=== PATIENT | male | born 1950 | race Two or more races ===

== ENCOUNTER 2019-01-23 07:10 | Inpatient (IN) | payer BC, OTHER ==
[2019-01-23 07:31] LABS: VENOUS PC02 63.1 mmHg (38-52)
[2019-01-23 07:36] LABS: VENOUS PO2 < 49 mmHg (28-48)
[2019-01-23 07:37] LABS: VENOUS PH 6.93 (7.31-7.41)
[2019-01-23] MEDS ORDERED: NOREPINEPHRINE BITARTRATE 4 MG/4 ML ML IV ONE (07:41)
[2019-01-23 08:02] LABS: BASO % 0.7 % (0-2.0); EOS % 0.4 % (0-4.5); HEMATOCRIT 34.2 % (35.4-49); HEMOGLOBIN 11.3 GM/dL (11.7-16.9); LYMPH % 14.3 % (8-40); MCH 32.7 pg (25.7-33.7); MCHC 33.2 g/dl (32.0-35.9); MEAN CELL VOLUME 98.4 fl (80-96); MEAN PLT VOLUME 7.9 fl (7.5-11.1); MONO % 5.4 % (3.8-10.2); NEUT % 79.2 % (42.8-82.8); PLATELET COUNT 366 K/MM3 (134-434); RBC 3.47 M/mm3 (4.00-5.60); RDW 13.5 % (11.9-15.9); WHITE BLOOD COUNT 20.2 K/mm3 (4.0-10.0)
[2019-01-23 08:05] VITALS: BMI 22.6
[2019-01-23 08:07] LABS: ALBUMIN 1.8 g/dl (3.4-5.0); BILIRUBIN,TOTAL 1.6 mg/dL (0.2-1); CREATININE 1.7 mg/dL (0.55-1.3); POTASSIUM 4.7 mmol/L (3.5-5.1); TOT PROT 5.2 g/dl (6.4-8.2)
[2019-01-23 08:23] LABS: INR 1.24 (0.83-1.09); PROTHROMBIN TIME (PATIENT) 14.7 SEC (9.7-13.0)
[2019-01-23 08:26] LABS: ACTIVATED PTT 34.8 SECONDS (25.2-36.5)
--- NOTE | 2019-01-23 08:36 | PDOC ---
Attending Attestation - Resident Resident Name: CliveannabellaevelynMaximiliano - ED Attending Attestation I have performed the following: I have examined & evaluated the patient, The case was reviewed & discussed with the resident, I agree w/resident's findings & plan, Exceptions are as noted - HPI HPI: 01/23/19 08:19 68 M with h/o newly diagnosed ?lung CA, brought in by EMS for cardiac arrest. Per family, pt had a cough yesterday but was in otherwise good health. This morning, daughter states she heard a thud and found the pt unresponsive on the ground. EMS arrived and found pt in PEA arrest. CPR was initiated, and pt was given epi x 2 with ROSC. Pt was intubated in the field. In ED, ETT placement was confirmed by auscultation, end tidal CO2. Pt initially hypotensive 70s/30s, tachycardic to 130, hypoxic to 90% on vent Pt fluid resuscitated with 2L NS, with improvement in BP and HR. Pt suddenly decompensated, with drop in BP to 50/30. IO placed. Pt given epi and started on levophed. BP stabilized to 150/80. While on vent, pt's O2 sat dopped to 30% with good waveform. Pt taken off vent, bagged with improvement to 80% CXR revealed diffuse infiltrates. Vent settings adjusted per ARDS protocol, increased PEEP, tidal volume lowered. - Physicial Exam PE: 01/23/19 08:36 GENERAL: + unresponsive, intubated HEAD: + occipital hematoma EYES: PERRLA, sclera anicteric, conjunctiva clear ENT: Auricles normal inspection, nares patent, Moist mucosa NECK: no stepoffs, supple, no lymphadenopathy, JVD, or masses LUNGS: + coarse breathsounds throughout on ventilator HEART: + tachycardic, normal S1 and S2, no murmurs, rubs or gallops ABDOMEN: Soft, nondistended, No masses EXTREMITIES: No clubbing or cyanosis. No cords, erythema, or tenderness NEUROLOGICAL: + paralyzed SKIN: Warm, Dry, normal turgor, no rashes or lesions noted. - Critical Care Time Total Critical Care Time: 180 Critical Care Statement: The care of this patient involved high complexity decision making to prevent further life threatening deterioration of the patient 's condition and/or to evaluate & treat vital organ system(s) failure or risk of failure. - Medical Decision Making 01/23/19 08:45 68 M with PEA arrest at home, now with ROSC. Possible PE. EKG does not show STEMI. Head hematoma on exam, will r/o ICH. Pt now with diffuse infiltrates on CXR, suspicious for ARDS. - Maintain vent settings per ARDS protocol - CT head/c-spine - CTA chest to r/o PE - CT abd/pelvis - Central line placement for pressors - Admit ICU 01/23/19 10:20 CT negative for PE Triple lumen CVC placed therapeutic hypothermia initiated
--- NOTE | 2019-01-23 09:12 | PDOC ---
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 Pt family report recent DC from [facility], pt placed on 6L NC 26/11 and family states pt complained of SOB yesterday at home asking to increase O2 to 8L. Daughter reports seeing pt this am around 6, took a 10 min shower and when getting out of the bathroom, heard a thump and found the pt unresponsive on the ground. EMS called, pt found to be in PEA, given 2 epi and intubated, ROSC achieved with good O2 saturation and cap in the 40s In the ED pt placed on monitor, ABC intact, ET tube confirmed by auscultation and end tidal CO2. BP 70s/30s, tachy and hypoxic 01/23/19 14:38 01/23/19 08:19 68 M with h/o newly diagnosed ?lung CA, brought in by EMS for cardiac arrest. Per family, pt had a cough yesterday but was in otherwise good health. This morning, daughter states she heard a thud and found the pt unresponsive on the ground. EMS arrived and found pt in PEA arrest. CPR was initiated, and pt was given epi x 2 with ROSC. Pt was intubated in the field. In ED, ETT placement was confirmed by auscultation, end tidal CO2. Pt initially hypotensive 70s/30s, tachycardic to 130, hypoxic to 90% on vent Pt fluid resuscitated with 2L NS, with improvement in BP and HR. Pt suddenly decompensated, with drop in BP to 50/30. IO placed. Pt given epi and started on levophed. BP stabilized to 150/80. While on vent, pt's O2 sat dopped to 30% with good waveworm. Pt taken off vent, bagged with improvement to 80% CXR revealed diffuse infiltrates. Vent settings adjusted per ARDS protocol, increased PEEP, tidal volume lowered. - Physicial Exam PE: 01/23/19 08:36 GENERAL: + unresponsive, intubated HEAD: + occipital hematoma EYES: PERRLA, sclera anicteric, conjunctiva clear ENT: Auricles normal inspection, nares patent, Moist mucosa NECK: no stepoffs, supple, no lymphadenopathy, JVD, or masses LUNGS: + coarse breathsounds throughout on ventilator HEART: + tachycardic, normal S1 and S2, no murmurs, rubs or gallops ABDOMEN: Soft, nondistended, No masses EXTREMITIES: No clubbing or cyanosis. No cords, erythema, or tenderness NEUROLOGICAL: + paralyzed SKIN: Warm, Dry, normal turgor, no rashes or lesions noted. - Critical Care Time Total Critical Care Time: 120 Critical Care Statement: The care of this patient involved high complexity decision making to prevent further life threatening deterioration of the patient 's condition and/or to evaluate & treat vital organ system(s) failure or risk of failure. - Medical Decision Making 01/23/19 08:45 68 M with PEA arrest at home, now with ROSC. Possible PE. EKG does not show STEMI. Head hematoma on exam, will r/o ICH. Pt now with diffuse infiltrates on CXR, suspicious for ARDS. - Maintain vent settings per ARDS protocol - CT head/c-spine - CTA chest to r/o PE - CT abd/pelvis - Central line placement for pressors - Admit ICU 01/23/19 10:20 CT negative for PE therapeutic hypothermia initiated Past History - Past Medical History Allergies/Adverse Reactions: Allergies Allergy/AdvReac Type Severity Reaction Status Date / Time No Allergy Information Allergy Verified 01/23/19 07:58 Available - Suicide/Smoking/Psychosocial Hx Smoking History: Unknown if ever smoked *Physical Exam - Vital Signs Last Vital Signs Temp Pulse Resp BP Pulse Ox 99.6 F 122 H 18 166/70 78 L 01/23/19 07:10 01/23/19 09:10 01/23/19 09:10 01/23/19 09:10 01/23/19 09:10 ED Treatment Course - LABORATORY CBC & Chemistry Diagram: 01/23/19 12:00 01/23/19 12:00 - ADDITIONAL ORDERS Additional order review: Laboratory Results 01/23/19 01/23/19 01/23/19 07:56 07:20 07:20 PT with INR INR PTT (Actin FS) VBG pH 6.93 L* POC VBG pCO2 63.1 H POC VBG pO2 < 49 H VBG HCO3 12.6 L VBG O2 Sat (Wilda) 25.9 L VBG Base Excess -20.3 L Sodium Potassium Chloride Carbon Dioxide Anion Gap BUN Creatinine Est GFR (CKD-EPI)AfAm Est GFR (CKD-EPI)NonAf POC Glucometer Random Glucose Lactic Acid 12.9 H* Calcium Total Bilirubin AST ALT Alkaline Phosphatase Troponin I Total Protein Albumin Blood Type O POSITIVE Antibody Screen Negative 01/23/19 01/23/19 01/23/19 07:20 07:20 07:20 PT with INR 14.70 H INR 1.24 H PTT (Actin FS) 34.8 VBG pH POC VBG pCO2 POC VBG pO2 VBG HCO3 VBG O2 Sat (Wilda) VBG Base Excess Sodium 128 L Potassium 4.7 Chloride 94 L Carbon Dioxide 13 L Anion Gap 21 H BUN 27.0 H Creatinine 1.7 H Est GFR (CKD-EPI)AfAm 46.65 Est GFR (CKD-EPI)NonAf 40.25 POC Glucometer Random Glucose 219 H Lactic Acid Calcium 8.0 L Total Bilirubin 1.6 H AST 164 H ALT 117 H Alkaline Phosphatase 131 H Troponin I 0.02 Total Protein 5.2 L Albumin 1.8 L Blood Type Antibody Screen 01/23/19 07:17 PT with INR INR PTT (Actin FS) VBG pH POC VBG pCO2 POC VBG pO2 VBG HCO3 VBG O2 Sat (Wilda) VBG Base Excess Sodium Potassium Chloride Carbon Dioxide Anion Gap BUN Creatinine Est GFR (CKD-EPI)AfAm Est GFR (CKD-EPI)NonAf POC Glucometer 209 Random Glucose Lactic Acid Calcium Total Bilirubin AST ALT Alkaline Phosphatase Troponin I Total Protein Albumin Blood Type Antibody Screen 01/23/19 01/23/19 07:20 07:17 RBC 3.47 L MCV 98.4 H MCHC 33.2 RDW 13.5 MPV 7.9 Neutrophils % 79.2 Lymphocytes % 14.3 Monocytes % 5.4 Eosinophils % 0.4 Basophils % 0.7 POC Glucometer 209 *DC/Admit/Observation/Transfer - Referrals - Patient Instructions - Post Discharge Activity
[2019-01-23] MEDS ORDERED: SODIUM BICARBONATE 8.4% 50 MEQ/50 ML VIAL IV ONE (09:13)
[2019-01-23] MEDS ORDERED: SODIUM CHLORIDE IV STA (09:13)
[2019-01-23] MEDS ORDERED: EPINEPHrine 1:1,000 1 MG/1 ML - 30ML VIAL (INJECTION) IV ONE (09:14)
[2019-01-23] MEDS ORDERED: NOREPINEPHRINE BITARTRATE 8,000 MCG in DEXTROSE 5%-WATER - 492 ML IV SCH (09:15)
[2019-01-23 09:27] LABS: URINE APPEARANCE CLOUDY; URINE BILIRUBIN NEGATIVE (NEGATIVE); URINE COLOR YELLOW; URINE GLUCOSE (UA) NEGATIVE (NEGATIVE); URINE KETONE NEGATIVE (NEGATIVE)
[2019-01-23 09:28] LABS: URINE LEUK ESTERASE NEGATIVE (NEGATIVE); URINE NITRITE NEGATIVE (NEGATIVE); URINE PROTEIN 2+ (NEGATIVE)
[2019-01-23 09:32] LABS: EPI CELLS 3.2 /HPF (0-5/HPF); HYALINE CASTS 278.9 /lpf (0-8); URINE BACTERIA 52.8 /hpf (NEGATIVE); URINE RBC 23.3 /hpf (0-4); URINE WBC 100.4 /hpf (0-5)
[2019-01-23 09:33] LABS: YEAST MANY (NEGATIVE)
[2019-01-23] MEDS ORDERED: PROPOFOL 1,000,000 MCG/100 ML VIAL ONE ×2 (09:39→16:00)
[2019-01-23] MEDS ORDERED: PROPOFOL 1,000,000 MCG/100 ML VIAL IVPB SCH (09:45)
--- NOTE | 2019-01-23 10:46 | HP ---
CHIEF COMPLAINT: Cardiac Arrest PCP: [facility] HISTORY OF PRESENT ILLNESS: 68 y/o M with PMHx of newly diagnosed Lung Ca (B/L Adenocarcinoma, Diagnosed a few weeks ago at [facility]) presents after Cardiac Arrest. Patient was intubated and sedated during my interview, thus the HPI was provided by daughter Emerita and Maddi at bedside. Patient was in his usual state of health until yesterday at which point he had some worsening SOB; He was recently discharged from [facility] with home O2 and was using 6L but it was increased to 8L with minimal relief. At 0600, Daughter checked on patient who was sitting upright and able to converse. Approximately at 0615, daughter heard a loud thud and quickly approached patients room where she found him on the ground unconcious prompting her to alert EMS. As per EMR and ED documentation, patient had a down time of approx. 10 minutes, was found to be in PEA, Intubated in the field and ROSC was achieved after 2 rounds of Epinepherine. In the ED, patient was found to be Hypoxic, Hypotensive and tachycardic for which he recieved 2L NS however he again decompensated. Thus , an IO was placed and patient was started on levophed. Family denies any recent fevers, chills, chest pain, nausea, vomiting, diarrhea , constipation. Additionally he was recently rx'e 5mg Hydromorphone started yesterday evening. Famly mentions that patient has been experiencing some hemoptysis. 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 NECK: No JVD LUNGS: Mechanical vent sounds HEART: Tachycardic, S1 S2 ABDOMEN: Soft, nontender, Distended, Hypoactive bowel sounds EXTREMITIES: No peripheral edema. NEUROLOGICAL: Sedated SKIN: Warm, dry Laboratory Last Values WBC 20.2 K/mm3 (4.0-10.0) H 01/23/19 07:20 RBC 3.47 M/mm3 (4.00-5.60) L 01/23/19 07:20 Hgb 11.3 GM/dL (11.7-16.9) L 01/23/19 07:20 Hct 34.2 % (35.4-49) L 01/23/19 07:20 MCV 98.4 fl (80-96) H 01/23/19 07:20 MCH 32.7 pg (25.7-33.7) 01/23/19 07:20 MCHC 33.2 g/dl (32.0-35.9) 01/23/19 07:20 RDW 13.5 % (11.9-15.9) 01/23/19 07:20 Plt Count 366 K/MM3 (134-434) 01/23/19 07:20 MPV 7.9 fl (7.5-11.1) 01/23/19 07:20 Absolute Neuts (auto) 16.0 K/mm3 (1.5-8.0) H 01/23/19 07:20 Neutrophils % 79.2 % (42.8-82.8) 01/23/19 07:20 Lymphocytes % 14.3 % (8-40) 01/23/19 07:20 Monocytes % 5.4 % (3.8-10.2) 01/23/19 07:20 Eosinophils % 0.4 % (0-4.5) 01/23/19 07:20 Basophils % 0.7 % (0-2.0) 01/23/19 07:20 Nucleated RBC % 0 % (0-0) 01/23/19 07:20 PT with INR 14.70 SEC (9.7-13.0) H 01/23/19 07:20 INR 1.24 (0.83-1.09) H 01/23/19 07:20 PTT (Actin FS) 34.8 SECONDS (25.2-36.5) 01/23/19 07:20 VBG pH 6.93 (7.31-7.41) L* 01/23/19 07:20 POC VBG pCO2 63.1 mmHg (38-52) H 01/23/19 07:20 POC VBG pO2 < 49 mmHg (28-48) H 01/23/19 07:20 VBG HCO3 12.6 mmol/L (23-29) L 01/23/19 07:20 VBG O2 Sat (Wilda) 25.9 % (70-80) L 01/23/19 07:20 VBG Base Excess -20.3 meq/l (-2-2) L 01/23/19 07:20 Sodium 128 mmol/L (136-145) L 01/23/19 07:20 Potassium 4.7 mmol/L (3.5-5.1) 01/23/19 07:20 Chloride 94 mmol/L (98-107) L 01/23/19 07:20 Carbon Dioxide 13 mmol/L (21-32) L 01/23/19 07:20 Anion Gap 21 MMOL/L (8-16) H 01/23/19 07:20 BUN 27.0 mg/dL (7-18) H 01/23/19 07:20 Creatinine 1.7 mg/dL (0.55-1.3) H 01/23/19 07:20 Est GFR (CKD-EPI)AfAm 46.65 01/23/19 07:20 Est GFR (CKD-EPI)NonAf 40.25 01/23/19 07:20 POC Glucometer 209 UNITS (80-120) 01/23/19 07:17 Random Glucose 219 mg/dL (74-106) H 01/23/19 07:20 Lactic Acid 12.9 mmol/L (0.4-2.0) H* 01/23/19 07:20 Calcium 8.0 mg/dL (8.5-10.1) L 01/23/19 07:20 Total Bilirubin 1.6 mg/dL (0.2-1) H 01/23/19 07:20 AST 164 U/L (15-37) H 01/23/19 07:20 ALT 117 U/L (13-61) H 01/23/19 07:20 Alkaline Phosphatase 131 U/L (45-117) H 01/23/19 07:20 Troponin I 0.02 ng/ml (0.00-0.05) 01/23/19 07:20 Total Protein 5.2 g/dl (6.4-8.2) L 01/23/19 07:20 Albumin 1.8 g/dl (3.4-5.0) L 01/23/19 07:20 Urine Color Yellow 01/23/19 07:50 Urine Appearance Cloudy 01/23/19 07:50 Urine pH 6.0 (5.0-8.0) 01/23/19 07:50 Ur Specific Dahlgren 1.022 (1.010-1.035) 01/23/19 07:50 Urine Protein 2+ (NEGATIVE) H 01/23/19 07:50 Urine Glucose (UA) Negative (NEGATIVE) 01/23/19 07:50 Urine Ketones Negative (NEGATIVE) 01/23/19 07:50 Urine Blood 3+ (NEGATIVE) H 01/23/19 07:50 Urine Nitrite Negative (NEGATIVE) 01/23/19 07:50 Urine Bilirubin Negative (NEGATIVE) 01/23/19 07:50 Urine Urobilinogen 1.0 mg/dL (0.2-1.0) 01/23/19 07:50 Ur Leukocyte Esterase Negative (NEGATIVE) 01/23/19 07:50 Urine WBC (Auto) 100.4 /hpf (0-5) 01/23/19 07:50 Urine RBC (Auto) 23.3 /hpf (0-4) 01/23/19 07:50 Urine Casts (Auto) 278.9 /lpf (0-8) 01/23/19 07:50 U Pathogenic Cast Auto None seen /lpf (NEGATIVE) 01/23/19 07:50 U Epithel Cells (Auto) 3.2 /HPF (0-5/HPF) 01/23/19 07:50 Urine Bacteria (Auto) 52.8 /hpf (NEGATIVE) 01/23/19 07:50 Urine Yeast (Auto) Many (NEGATIVE) 01/23/19 07:50 Blood Type O POSITIVE 01/23/19 07:56 Antibody Screen Negative 01/23/19 07:56 Active Medications Chlorhexidine Gluconate (Hibiclens For Decolonization -) 1 applic TP HS RAHEEL Norepinephrine Bitartrate 8, (000 mcg/ Dextrose) 500 mls @ 18.75 mls/hr IV TITR RAHEEL; Protocol Last Titration: 01/23/19 10:59 Dose: 4 mcg/min, 15 mls/hr Sodium Chloride (Normal Saline -) 4,000 mls @ 1,000 mls/hr IV ASDIR STA Stop: 01/23/19 13:12 Last Admin: 01/23/19 07:15 Dose: 1,000 mls/hr Propofol (Diprivan -) 1,000,000 mcg in 100 mls @ 1.905 mls/hr IVPB TITR RAHEEL; Protocol Last Titration: 01/23/19 10:55 Dose: 30 mcg/kg/min, 11.431 mls/hr Piperacillin Sod/Tazobactam (Sod 3.375 gm/ Dextrose) 50 mls @ 100 mls/hr IVPB Q8H-IV RAHEEL; Protocol Lactated Ringer's (Lactated Ringers Solution) 1,000 ml in 1,000 mls @ 150 mls/ hr IV ASDIR RAHEEL Piperacillin Sod/Tazobactam (Sod 3.375 gm/ Dextrose) 50 mls @ 100 mls/hr IVPB ONCE ONE; Protocol Stop: 01/23/19 12:14 Mupirocin (Bactroban Ointment (For Decolonization) -) 1 applic NS BID RAHEEL Stop: 01/28/19 11:59 Vancomycin HCl (Vancomycin (Pre-Docked)) 1,000 mg IVPB DAILY RAHEEL; Protocol Vancomycin HCl (Vancomycin (Pre-Docked)) 1,000 mg IVPB ONCE ONE; Protocol Stop: 01/23/19 11:46 IMAGING: -CXR: There are no prior studies for comparison. There appears to be bilateral diffuse airspace changes compatible with right upper lobe and left lung consolidation and an element of infiltrate at the right base. There is a prominent mediastinum. The bones and soft tissues are intact his abdominal distention. Correlation recommended. There are no prior studies for comparison. CT may be of help. Please note an endotracheal tube is present and the tip is at the level of the clavicular heads. No other lines or tubes are visualized. -Head CT Without contrast: Minimal volume loss without CT evidence of acute intracranial pathology. Correlate clinically to determine further evaluation and follow-up. There is mild soft tissue swelling of the scalp over left side of the forehead. -C-Spine CT Without contrast: The alignment is satisfactory. No gross fracture or subluxation is seen. C5-C6 mild degenerative disc disease. An endotracheal tube is present and hence prevertebral soft tissue could not be evaluated. Focal nonspecific sclerotic density and T2 vertebral body measuring 6 mm. -Chest/Abdomen/Pelvis CTA: There is no gross evidence of a pulmonary embolus in the main pulmonary artery and its proximal branches, bilaterally. Normal size and enhancement of the thoracic and abdominal aorta without evidence of aneurysmal dilatation or dissection. Moderate pericardial effusion measuring 2 cm in width. There is diffuse bilateral airspace disease suggestive of lung edema that may be related to the vertex kinking history of cardiac arrest. Cannot rule out infection. Correlate clinically. Moderate dilatation of the small and bowel loops measuring up to 4 cm with multiple air-fluid levels and a normal-sized terminal ileum. Differential diagnosis includes severe ileus. Cannot rule out distal small bowel obstruction. Correlate clinically. No free air or free fluid in the abdomen and pelvis. Diverticulosis coli in the sigmoid colon without evidence of acute diverticulitis. Greene catheter within a decompressed urinary bladder. Small fat-containing right and left inguinal hernia. Healing fracture in posterior arch of the left seventh rib. Otherwise, no gross acute rib fracture is identified. ASSESSMENT/PLAN: 68 y/o M with PMHx of newly diagnosed Lung Ca (B/L Adenocarcinoma, Diagnosed a few weeks ago at [facility]) presents after Cardiac Arrest. #S/P Cardiac Arrest -Likely multifactorial with elements of Sepsis, Hypoxia -EKG reveals Sinus Tachycardia, RBBB VR 114, QTc 496 -Continue Target temperature management protocol -Stat A-Line requested -Trend Trops, Stat ABG; Will Require frequent Lab draws given TTM protocol -Received 2 amps Bicarb and currently Hyperventilating, will consider Bicarb drip if Acidosis does not improve -Check ECHO -Intubated on Vent -Cardio (Dr. Duff) Consulted -Palliative care #Severe Sepsis -Tachycardia + Leukocytosis with RUL, left lung consolidation and Right base infiltrate on CXR and ?Severe Ileus VS SBO on CT A/P -Continue IV Hydration; Given 4L NS Bolus in ED, Continue with LR @ 150 -Continue broad spectrum ABx, Vanco 1g Daily, Piperacillin/Tazobactam 3.35g Q8H -Continue Pressor support to maintain MAP > 65 -ID (Dr. Pandey) Consulted -Trend Lactate Q2H -Follow Cx's #Acute hypoxic respiratory failure -s/p intubation via EMS -ARDS apperance on CXR -Supplemental O2 to maintain SpO2 >90 -Further Vent management as per ICU #MINDY -Likely due to Hypoperfusion in the setting of Cardiac arrest, Sepsis -Continue IV Hydration -Avoid nephrotoxic agents -Monitor Urine Output, Cr #Ischemic hepatitis -Likely due to Hypoperfusion in the setting of Cardiac arrest -Trend LFTs #Prolonged QTc -Serial EKGs -Avoid QT Prolonging Agents #FEN -IV Hydration via LR -Replete Lytes PRN -NPO #PPx -DVT: SCDs Dispo: Admit to ICU, Poor Prognosis Code Status: DNR Visit type - Emergency Visit Emergency Visit: Yes ED Registration Date: 01/23/19 Care time: The patient presented to the Emergency Department on the above date and was hospitalized for further evaluation of their emergent condition. - New Patient This patient is new to me today: Yes Date on this admission: 01/23/19 - Critical Care Critical Care patient: Yes Total Critical Care Time (in minutes): 36 Critical Care Statement: The care of this patient involved high complexity decision making to prevent further life threatening deterioration of the patient 's condition and/or to evaluate & treat vital organ system(s) failure or risk of failure. ATTENDING PHYSICIAN STATEMENT I saw and evaluated the patient. I reviewed the resident's note and discussed the case with the resident. I agree with the resident's findings and plan as documented. SUBJECTIVE: OBJECTIVE: ASSESSMENT AND PLAN:
[2019-01-23 10:56] VITALS: TEMP 98.6
[2019-01-23] MEDS ORDERED: PIPERACILLIN/TAZOB 3.375 GM 3.375 GM in DEXTROSE 5%-WATER - 50 ML IVPB SCH ×2 (11:15→18:00)
[2019-01-23] MEDS ORDERED: LACTATED RINGERS SOLUTION 1,000 ML/1,000 ML INFUS.BAG IV SCH ×2 (11:15→11:30)
[2019-01-23] MEDS ORDERED: VANCOMYCIN 1 GM in D5W (PRE-DOCKED) 1,000 MG/250 ML IVPB SCH (11:15)
[2019-01-23 11:27] LABS: ANISOCYTOSIS 0; MACROCYTOSIS 1+; PLATELET ESTIMATE NORMAL
[2019-01-23] MEDS ORDERED: PIPERACILLIN/TAZOB 3.375 GM 3.375 GM in DEXTROSE 5%-WATER - 50 ML IVPB ONE (11:45)
[2019-01-23] MEDS ORDERED: VANCOMYCIN 1 GM in D5W (PRE-DOCKED) 1,000 MG/250 ML IVPB ONE (11:45)
[2019-01-23] MEDS ORDERED: MUPIROCIN 2% TOPICAL OINTMENT FOR DECOLONIZATION NS SCH (12:00)
[2019-01-23 12:06] LABS: ARTERIAL BLD GAS O2 SATURATION 63.6 % (95-98); ARTERIAL BLOOD GAS BASE EXCESS -11.6 meq/l (-2-2)
[2019-01-23 12:08] LABS: ARTERIAL BLOOD GAS PCO2 88.9 mmHg (35-45); ARTERIAL BLOOD GAS PO2 < 49 mmHg (80-100); ARTERIAL BLOOD GAS pH 7.04 (7.35-7.45)
[2019-01-23 12:09] LABS: ALLENS TEST POSITIVE
[2019-01-23] MEDS ORDERED: DEXTROSE 5%-WATER - 50 ML IVPB ONE (12:17)
[2019-01-23] MEDS ORDERED: PIPERACILLIN/TAZOBACTAM 3.375 GM VIAL IVPB ONE (12:17)
[2019-01-23 12:39] LABS: BASO % 0.1 % (0-2.0); HEMATOCRIT 41.3 % (35.4-49); HEMOGLOBIN 13.9 GM/dL (11.7-16.9); MCH 32.6 pg (25.7-33.7); MCHC 33.8 g/dl (32.0-35.9); MEAN CELL VOLUME 96.4 fl (80-96); MEAN PLT VOLUME 7.4 fl (7.5-11.1); MONO % 3.2 % (3.8-10.2); NEUT % 94.7 % (42.8-82.8); PLATELET COUNT 394 K/MM3 (134-434); RBC 4.28 M/mm3 (4.00-5.60); RDW 13.4 % (11.9-15.9); WHITE BLOOD COUNT 16.8 K/mm3 (4.0-10.0)
--- NOTE | 2019-01-23 12:40 | CON.CARD ---
Cardiology Consult (text) - Consultation Consultation Note: CC: Cardiac arrest, sinus tach HPI Newly diagnosed lung cancer s/p cardiac arrest, acute respiratory failure. Intubated and moved to ICU. CTA negative for PE, but diffuse b/l lung opacifications. I was consulted for sinus tachycardia in this setting. Came to evaluate patient in ICU at which time entire extended family present. He is now DNR/DNI. Intubated on pressors. Difficulty oxygenation. CTA shows diffuse opacities b/l c/w likely mets/cancer. Family reports one month of persistent cough leading up to the dx of stage 4 adenoCA lung at [facility] and a pericardial effusion that was being followed closely. Per Dr. Ceja, he was scheduled for a window on Saturday and had an echo Saturday or Saturday at [facility] showing no overt tamponade. Cardiology there had been consulted but did not feel his SOB was due to the effusion, but progression of disease in chest. The window was being done to see if may improve symptoms, but was deemed not urgent. ECG and tele reviewed: Sinus tach, RBBB. MEDS: reviewed ALL: None FH: Non-contrib SH: lived alone, smoker. EXAM: Hypotensive + ETT =breath sounds b/l, b/l rhonchi abd soft, mild distension Jennings heart sounds, S1,2. Tachy, no Murmurs Ext cool with trace b/l edema Selected Entries 01/23/19 01/23/19 01/23/19 09:11 10:55 12:01 Pulse Rate 138 H Blood Pressure 92/67 O2 Sat by Pulse 80 L Oximetry (%) Oxygen Delivery Mechanical Method Ventilator Fraction of 100 Inspired Oxygen (FIO2) Laboratory Tests 01/23/19 01/23/19 01/23/19 07:20 07:20 07:20 WBC 20.2 H Hgb 11.3 L Plt Count 366 INR 1.24 H ABG pH ABG pCO2 at Pt Temp Sodium BUN Creatinine Lactic Acid AST ALT Alkaline Phosphatase Troponin I 0.02 Total Protein Albumin 01/23/19 01/23/19 01/23/19 07:20 07:20 12:00 WBC Hgb Plt Count INR ABG pH 7.04 L* ABG pCO2 at Pt Temp 88.9 H* Sodium 128 L BUN 27.0 H Creatinine 1.7 H Lactic Acid 12.9 H* AST 164 H ALT 117 H Alkaline Phosphatase 131 H Troponin I Total Protein 5.2 L Albumin 1.8 L 01/23/19 12:00 WBC Pending Hgb Pending Plt Count Pending INR ABG pH ABG pCO2 at Pt Temp Sodium BUN Creatinine Lactic Acid AST ALT Alkaline Phosphatase Troponin I Total Protein Albumin IMP: Advanced lung cancer Pericardial effusion s/p Cardiac arrest, acute respiratory failure Refractory hypoxia despite mechanical ventilation, 100%FIO2 likely due to diffuse tumor involvement vs PNA (CTA - for PE) DNR/DNI REC: 1. Continue vent support 2. On pressors to maintain MAP 60mmHg 3. Abx as per Critical Care 4. Pericardial effusion, reportedly moderate, felt not to be hemodynamically sig (as per CT sx): offered family option of repeating echo today, but they declined and seem to be leaning toward comfort measures Poor prognosis, family aware. DNR/DNI with consideration of comfort measures.
--- NOTE | 2019-01-23 12:44 | CONSULT ---
Consultation: REQUESTING PROVIDER: CONSULT REQUEST: We have been asked to medically evaluate this patient for ICU level of care. HISTORY OF PRESENT ILLNESS: Patient is a 68M newly diagnosed with Stage 4 Lung Cancer who came into the ED after a cardiac arrest. Family reports hearing him fall and calling 911. 2 rounds of compressions and epinephrine were performed and ROSC was achieved. Patient was subsequently intubated in the field. Patient was difficult to ventilate and required bagging multiple times. Concern for PE given cancer history, CTA showed no evidence of PE. However, CTA showed extensive airspace disease with little lung function. REVIEW OF SYSTEMS: Unable to obtain 2/2 clinical condition PHYSICAL EXAMINATION Vital Signs - 24 hr 01/23/19 01/23/19 01/23/19 07:10 07:20 07:22 Temperature 99.6 F Pulse Rate 111 H Pulse Rate [ Apical] Respiratory 20 16 16 Rate Blood Pressure 73/45 L Blood Pressure [Right Arm] O2 Sat by Pulse 91 L 92 L Oximetry (%) 01/23/19 01/23/19 01/23/19 07:25 07:36 07:38 Temperature Pulse Rate Pulse Rate [ 115 H 45 L 137 H Apical] Respiratory 16 16 16 Rate Blood Pressure Blood Pressure 96/48 L 54/38 L 197/112 H [Right Arm] O2 Sat by Pulse 88 L Oximetry (%) 01/23/19 01/23/19 01/23/19 07:50 08:41 09:10 Temperature Pulse Rate 120 H Pulse Rate [ 125 H 122 H Apical] Respiratory 16 18 Rate Blood Pressure 131/61 Blood Pressure 168/75 166/70 [Right Arm] O2 Sat by Pulse 83 L 78 L Oximetry (%) 01/23/19 01/23/19 01/23/19 09:11 09:53 09:57 Temperature Pulse Rate 122 H Pulse Rate [ 110 H Apical] Respiratory 22 H 16 Rate Blood Pressure 176/78 H Blood Pressure 141/83 [Right Arm] O2 Sat by Pulse 80 L Oximetry (%) 01/23/19 01/23/19 01/23/19 10:08 10:15 10:20 Temperature Pulse Rate 100 H Pulse Rate [ 142 H 128 H Apical] Respiratory Rate Blood Pressure 137/77 Blood Pressure 116/73 102/71 [Right Arm] O2 Sat by Pulse Oximetry (%) 01/23/19 01/23/19 01/23/19 10:25 10:30 10:35 Temperature Pulse Rate Pulse Rate [ 127 H 129 H 137 H Apical] Respiratory 16 16 16 Rate Blood Pressure Blood Pressure 120/76 115/75 109/68 [Right Arm] O2 Sat by Pulse 79 L 78 L Oximetry (%) 01/23/19 01/23/19 01/23/19 10:55 10:59 11:20 Temperature 98.6 F Pulse Rate 130 H Pulse Rate [ 131 H Apical] Respiratory 16 Rate Blood Pressure 118/76 85/74 L Blood Pressure 117/78 [Right Arm] O2 Sat by Pulse 80 L Oximetry (%) 01/23/19 01/23/19 11:30 12:01 Temperature Pulse Rate 138 H Pulse Rate [ Apical] Respiratory 23 H Rate Blood Pressure 129/97 92/67 Blood Pressure [Right Arm] O2 Sat by Pulse Oximetry (%) GENERAL: Intubated, sedated HEAD: Hematoma on left anterior aspect of head EYES: Pupils equal, round and reactive to light. +Corneal reflex EARS, NOSE, THROAT: Ears normal, nares patent, oropharynx clear without exudates. Moist mucous membranes. NECK: Normal range of motion, supple without lymphadenopathy, JVD, or masses. LUNGS: Coarse breath sounds bilaterally, tachypneic HEART: Tachycardic, regular ABDOMEN: Soft, nontender, not distended. MUSCULOSKELETAL: Normal range of motion at all joints. No bony deformities or tenderness. No CVA tenderness. UPPER EXTREMITIES: 1+ pulses, no edema LOWER EXTREMITIES: 1+ pulses. No peripheral edema. NEUROLOGICAL: Withdraws all extremities to pain, sedated Laboratory Results - last 24 hr 01/23/19 01/23/19 01/23/19 07:17 07:20 07:20 WBC RBC Hgb Hct MCV MCH MCHC RDW Plt Count MPV Absolute Neuts (auto) Neutrophils % Neutrophils % (Manual) Band Neutrophils % Lymphocytes % Lymphocytes % (Manual) Monocytes % Monocytes % (Manual) Eosinophils % Eosinophils % (Manual) Basophils % Basophils % (Manual) Myelocytes % (Man) Promyelocytes % (Man) Blast Cells % (Manual) Nucleated RBC % Metamyelocytes Hypochromia Platelet Estimate Polychromasia Poikilocytosis Anisocytosis Microcytosis Macrocytosis PT with INR 14.70 H INR 1.24 H PTT (Actin FS) 34.8 Puncture Site ABG pH ABG pCO2 at Pt Temp ABG pO2 at Pt Temp ABG HCO3 ABG O2 Sat (Measured) ABG O2 Content ABG Base Excess George Test VBG pH POC VBG pCO2 POC VBG pO2 VBG HCO3 VBG O2 Sat (Wilda) VBG Base Excess Oxygen Flow Rate Vent Mode Vent Rate PEEP Pressure Support Vent Sodium Potassium Chloride Carbon Dioxide Anion Gap BUN Creatinine Est GFR (CKD-EPI)AfAm Est GFR (CKD-EPI)NonAf POC Glucometer 209 Random Glucose Lactic Acid Calcium Total Bilirubin AST ALT Alkaline Phosphatase Troponin I 0.02 Total Protein Albumin Urine Color Urine Appearance Urine pH Ur Specific Hildebran Urine Protein Urine Glucose (UA) Urine Ketones Urine Blood Urine Nitrite Urine Bilirubin Urine Urobilinogen Ur Leukocyte Esterase Urine WBC (Auto) Urine RBC (Auto) Urine Casts (Auto) U Pathogenic Cast Auto U Epithel Cells (Auto) Urine Bacteria (Auto) Urine Yeast (Auto) Blood Type Antibody Screen 01/23/19 01/23/19 01/23/19 07:20 07:20 07:20 WBC 20.2 H RBC 3.47 L Hgb 11.3 L Hct 34.2 L MCV 98.4 H MCH 32.7 MCHC 33.2 RDW 13.5 Plt Count 366 MPV 7.9 Absolute Neuts (auto) 16.0 H Neutrophils % 79.2 Neutrophils % (Manual) 72.5 Band Neutrophils % 1.0 Lymphocytes % 14.3 Lymphocytes % (Manual) 17.4 Monocytes % 5.4 Monocytes % (Manual) 6 Eosinophils % 0.4 Eosinophils % (Manual) 0.0 Basophils % 0.7 Basophils % (Manual) 0.0 Myelocytes % (Man) 1 Promyelocytes % (Man) 0 Blast Cells % (Manual) 0 Nucleated RBC % 0 Metamyelocytes 2 Hypochromia 0 Platelet Estimate Normal Polychromasia 0 Poikilocytosis 0 Anisocytosis 0 Microcytosis 0 Macrocytosis 1+ PT with INR INR PTT (Actin FS) Puncture Site ABG pH ABG pCO2 at Pt Temp ABG pO2 at Pt Temp ABG HCO3 ABG O2 Sat (Measured) ABG O2 Content ABG Base Excess George Test VBG pH POC VBG pCO2 POC VBG pO2 VBG HCO3 VBG O2 Sat (Wilda) VBG Base Excess Oxygen Flow Rate Vent Mode Vent Rate PEEP Pressure Support Vent Sodium 128 L Potassium 4.7 Chloride 94 L Carbon Dioxide 13 L Anion Gap 21 H BUN 27.0 H Creatinine 1.7 H Est GFR (CKD-EPI)AfAm 46.65 Est GFR (CKD-EPI)NonAf 40.25 POC Glucometer Random Glucose 219 H Lactic Acid 12.9 H* Calcium 8.0 L Total Bilirubin 1.6 H AST 164 H ALT 117 H Alkaline Phosphatase 131 H Troponin I Total Protein 5.2 L Albumin 1.8 L Urine Color Urine Appearance Urine pH Ur Specific Hilde[place]an Urine Protein Urine Glucose (UA) Urine Ketones Urine Blood Urine Nitrite Urine Bilirubin Urine Urobilinogen Ur Leukocyte Esterase Urine WBC (Auto) Urine RBC (Auto) Urine Casts (Auto) U Pathogenic Cast Auto U Epithel Cells (Auto) Urine Bacteria (Auto) Urine Yeast (Auto) Blood Type Antibody Screen 01/23/19 01/23/19 01/23/19 07:20 07:50 07:56 WBC RBC Hgb Hct MCV MCH MCHC RDW Plt Count MPV Absolute Neuts (auto) Neutrophils % Neutrophils % (Manual) Band Neutrophils % Lymphocytes % Lymphocytes % (Manual) Monocytes % Monocytes % (Manual) Eosinophils % Eosinophils % (Manual) Basophils % Basophils % (Manual) Myelocytes % (Man) Promyelocytes % (Man) Blast Cells % (Manual) Nucleated RBC % Metamyelocytes Hypochromia Platelet Estimate Polychromasia Poikilocytosis Anisocytosis Microcytosis Macrocytosis PT with INR INR PTT (Actin FS) Puncture Site ABG pH ABG pCO2 at Pt Temp ABG pO2 at Pt Temp ABG HCO3 ABG O2 Sat (Measured) ABG O2 Content ABG Base Excess George Test VBG pH 6.93 L* POC VBG pCO2 63.1 H POC VBG pO2 < 49 H VBG HCO3 12.6 L VBG O2 Sat (Wilda) 25.9 L VBG Base Excess -20.3 L Oxygen Flow Rate Vent Mode Vent Rate PEEP Pressure Support Vent Sodium Potassium Chloride Carbon Dioxide Anion Gap BUN Creatinine Est GFR (CKD-EPI)AfAm Est GFR (CKD-EPI)NonAf POC Glucometer Random Glucose Lactic Acid Calcium Total Bilirubin AST ALT Alkaline Phosphatase Troponin I Total Protein Albumin Urine Color Yellow Urine Appearance Cloudy Urine pH 6.0 Ur Specific [place] 1.022 Urine Protein 2+ H Urine Glucose (UA) Negative Urine Ketones Negative Urine Blood 3+ H Urine Nitrite Negative Urine Bilirubin Negative Urine Urobilinogen 1.0 Ur Leukocyte Esterase Negative Urine WBC (Auto) 100.4 Urine RBC (Auto) 23.3 Urine Casts (Auto) 278.9 U Pathogenic Cast Auto None seen U Epithel Cells (Auto) 3.2 Urine Bacteria (Auto) 52.8 Urine Yeast (Auto) Many Blood Type O POSITIVE Antibody Screen Negative 01/23/19 12:00 WBC RBC Hgb Hct MCV MCH MCHC RDW Plt Count MPV Absolute Neuts (auto) Neutrophils % Neutrophils % (Manual) Band Neutrophils % Lymphocytes % Lymphocytes % (Manual) Monocytes % Monocytes % (Manual) Eosinophils % Eosinophils % (Manual) Basophils % Basophils % (Manual) Myelocytes % (Man) Promyelocytes % (Man) Blast Cells % (Manual) Nucleated RBC % Metamyelocytes Hypochromia Platelet Estimate Polychromasia Poikilocytosis Anisocytosis Microcytosis Macrocytosis PT with INR INR PTT (Actin FS) Puncture Site Right radial ABG pH 7.04 L* ABG pCO2 at Pt Temp 88.9 H* ABG pO2 at Pt Temp < 49 L* ABG HCO3 22.6 ABG O2 Sat (Measured) 63.6 L ABG O2 Content No Result Required. ABG Base Excess -11.6 L George Test Positive VBG pH POC VBG pCO2 POC VBG pO2 VBG HCO3 VBG O2 Sat (Wilda) VBG Base Excess Oxygen Flow Rate 100 Vent Mode Prvc Vent Rate 20 PEEP 12.0 Pressure Support Vent 300 Sodium Potassium Chloride Carbon Dioxide Anion Gap BUN Creatinine Est GFR (CKD-EPI)AfAm Est GFR (CKD-EPI)NonAf POC Glucometer Random Glucose Lactic Acid Calcium Total Bilirubin AST ALT Alkaline Phosphatase Troponin I Total Protein Albumin Urine Color Urine Appearance Urine pH Ur Specific Hildebran Urine Protein Urine Glucose (UA) Urine Ketones Urine Blood Urine Nitrite Urine Bilirubin Urine Urobilinogen Ur Leukocyte Esterase Urine WBC (Auto) Urine RBC (Auto) Urine Casts (Auto) U Pathogenic Cast Auto U Epithel Cells (Auto) Urine Bacteria (Auto) Urine Yeast (Auto) Blood Type Antibody Screen Active Medications Generic Name Dose Route Start Last Admin Trade Name Freq PRN Reason Stop Dose Admin Chlorhexidine Gluconate 1 applic 01/23/19 22:00 Hibiclens For Decolonization - TP HS RAHEEL Norepinephrine Bitartrate 8, 500 mls @ 18.75 mls/hr 01/23/19 09:15 01/23/19 10:59 000 mcg/ Dextrose IV 4 mcg/min TITR RAHEEL 15 mls/hr Titration Protocol 5 MCG/MIN Sodium Chloride 4,000 mls @ 1,000 mls/hr 01/23/19 09:13 01/23/19 07:15 Normal Saline - IV 01/23/19 13:12 1,000 mls/hr ASDIR STA Administration Propofol 1,000,000 mcg in 100 mls @ 1.905 mls/hr 01/23/19 09:45 01/23/19 10: 55 Diprivan - IVPB 30 mcg/kg/min TITR RAHEEL 11.431 mls/hr Titration Protocol 5 MCG/KG/MIN Piperacillin Sod/Tazobactam 50 mls @ 100 mls/hr 01/23/19 11:15 Sod 3.375 gm/ Dextrose IVPB Q8H-IV RAHEEL Protocol Lactated Ringer's 1,000 ml in 1,000 mls @ 150 mls/hr 01/23/19 11:30 01/23/19 12:14 Lactated Ringers Solution IV 150 mls/hr ASDIR RAHEEL Administration Mupirocin 1 applic 01/23/19 12:00 Bactroban Ointment (For Decolonization) - NS 01/28/19 11:59 BID RAHEEL Vancomycin HCl 1,000 mg 01/23/19 11:15 Vancomycin (Pre-Docked) IVPB DAILY RAHEEL Protocol ASSESSMENT/PLAN: Patient is a 68M with history of stage 4 lung cancer here s/p cardiac arrest, likely 2/2 respiratory failure. Resp Acute Respiratory Failure 2/2 Lung Cancer - Intubated, PEEP increased to help recruitment - Prognosis poor given damage to lung parenchyma 2/2 lung ca and cardiac arrest - ABG shows evidence of poor ventilation and oxygenation, will change vent settings as needed CV - Sinus tachycardia likely 2/2 hypoxia - Levophed for pressure support - Pericardial effusion without signs of tamponade ID - Empiric abx, vanc/zosyn Neuro - Sedated with propofol Prognosis poor, patient now DNR, continued ICU support Visit type - Emergency Visit Emergency Visit: Yes ED Registration Date: 01/23/19 Care time: The patient presented to the Emergency Department on the above date and was hospitalized for further evaluation of their emergent condition. - New Patient This patient is new to me today: Yes Date on this admission: 01/24/19 - Critical Care Critical Care patient: Yes Total Critical Care Time (in minutes): 35 Critical Care Statement: The care of this patient involved high complexity decision making to prevent further life threatening deterioration of the patient 's condition and/or to evaluate & treat vital organ system(s) failure or risk of failure. ATTENDING PHYSICIAN STATEMENT I saw and evaluated the patient. I reviewed the resident's note and discussed the case with the resident. I agree with the resident's findings and plan as documented. SUBJECTIVE: OBJECTIVE: ASSESSMENT AND PLAN:
--- NOTE | 2019-01-23 12:50 | PN ---
Progress Note (short form) - Note Progress Note: ID CONSULT DICTATED S/P CARDIOPULMONARY ARREST RESP FAILURE ? ARDS ADENOCARCINOMA OF LUNG LEUKOCYTOSIS LACTIC ACIDOSIS MINDY ELEVATED LFTS ? SHOCK LIVER UTI HYPONATREMIA AWAIT C/S CONTINUE HEMODYNAMIC/ VENTILATORY SUPPORT EMPIRIC VANCOMYCIN/ ZOSYN PROGNOSIS POOR critical care time 40min
[2019-01-23 13:41] LABS: ALBUMIN 1.6 g/dl (3.4-5.0); CALCIUM 7.2 mg/dL (8.5-10.1); CREATININE 1.2 mg/dL (0.55-1.3); MAGNESIUM 2.2 mg/dL (1.8-2.4); POTASSIUM 4.4 mmol/L (3.5-5.1); TOT PROT 4.9 g/dl (6.4-8.2)
--- NOTE | 2019-01-23 14:08 | PN ---
Teaching Attending Note Name of Resident: Ariel Daniel ATTENDING PHYSICIAN STATEMENT I saw and evaluated the patient. I reviewed the resident's note and discussed the case with the resident. I agree with the resident's findings and plan as documented. SUBJECTIVE: Patient seen and examined in the ICU. 68 M, newly diagnosed with Stage 4 Lung Cancer (adenocarcinoma: further staging not known). Admitted via the ER after a cardiac arrest. Family heard him fall and then called 911. Apparently he received 2 rounds of compressions and epinephrine and ROSC was achieved (# of minutes not clear). CTA: no PE / bilateral severe airspace opacity. PHYSICAL EXAMINATION Vital Signs - 24 hr 01/23/19 01/23/19 01/23/19 07:10 07:20 07:22 Temperature 99.6 F Pulse Rate 111 H Pulse Rate [ Apical] Respiratory 20 16 16 Rate Blood Pressure 73/45 L Blood Pressure [Right Arm] O2 Sat by Pulse 91 L 92 L Oximetry (%) 01/23/19 01/23/19 01/23/19 07:25 07:36 07:38 Temperature Pulse Rate Pulse Rate [ 115 H 45 L 137 H Apical] Respiratory 16 16 16 Rate Blood Pressure Blood Pressure 96/48 L 54/38 L 197/112 H [Right Arm] O2 Sat by Pulse 88 L Oximetry (%) 01/23/19 01/23/19 01/23/19 07:50 08:41 09:10 Temperature Pulse Rate 120 H Pulse Rate [ 125 H 122 H Apical] Respiratory 16 18 Rate Blood Pressure 131/61 Blood Pressure 168/75 166/70 [Right Arm] O2 Sat by Pulse 83 L 78 L Oximetry (%) 01/23/19 01/23/19 01/23/19 09:11 09:53 09:57 Temperature Pulse Rate 122 H Pulse Rate [ 110 H Apical] Respiratory 22 H 16 Rate Blood Pressure 176/78 H Blood Pressure 141/83 [Right Arm] O2 Sat by Pulse 80 L Oximetry (%) 01/23/19 01/23/19 01/23/19 10:08 10:15 10:20 Temperature Pulse Rate 100 H Pulse Rate [ 142 H 128 H Apical] Respiratory Rate Blood Pressure 137/77 Blood Pressure 116/73 102/71 [Right Arm] O2 Sat by Pulse Oximetry (%) 01/23/19 01/23/19 01/23/19 10:25 10:30 10:35 Temperature Pulse Rate Pulse Rate [ 127 H 129 H 137 H Apical] Respiratory 16 16 16 Rate Blood Pressure Blood Pressure 120/76 115/75 109/68 [Right Arm] O2 Sat by Pulse 79 L 78 L Oximetry (%) 01/23/19 01/23/19 01/23/19 10:55 10:59 11:20 Temperature 98.6 F Pulse Rate 130 H Pulse Rate [ 131 H Apical] Respiratory 16 Rate Blood Pressure 118/76 85/74 L Blood Pressure 117/78 [Right Arm] O2 Sat by Pulse 80 L Oximetry (%) 01/23/19 01/23/19 11:30 12:01 Temperature Pulse Rate 138 H Pulse Rate [ Apical] Respiratory 23 H Rate Blood Pressure 129/97 92/67 Blood Pressure [Right Arm] O2 Sat by Pulse Oximetry (%) GENERAL: Intubated, sedated HEAD: Hematoma on left anterior aspect of head EYES: Pupils equal, round and reactive to light. EARS, NOSE, THROAT: Ears normal. Moist mucous membranes. NECK: Normal range of motion, supple without lymphadenopathy, JVD, or masses. LUNGS: Mechanical ventilation, Coarse breath sounds bilaterally HEART: Tachycardic, regular ABDOMEN: Soft, nontender, not distended. MUSCULOSKELETAL: Normal range of motion at all joints. No bony deformities or tenderness. No CVA tenderness. UPPER EXTREMITIES: 1+ pulses, no edema LOWER EXTREMITIES: 1+ pulses. No peripheral edema. NEUROLOGICAL: Withdraws all extremities to pain, sedated Laboratory Results - last 24 hr 01/23/19 01/23/19 01/23/19 07:17 07:20 07:20 WBC RBC Hgb Hct MCV MCH MCHC RDW Plt Count MPV Absolute Neuts (auto) Neutrophils % Neutrophils % (Manual) Band Neutrophils % Lymphocytes % Lymphocytes % (Manual) Monocytes % Monocytes % (Manual) Eosinophils % Eosinophils % (Manual) Basophils % Basophils % (Manual) Myelocytes % (Man) Promyelocytes % (Man) Blast Cells % (Manual) Nucleated RBC % Metamyelocytes Hypochromia Platelet Estimate Polychromasia Poikilocytosis Anisocytosis Microcytosis Macrocytosis PT with INR 14.70 H INR 1.24 H PTT (Actin FS) 34.8 Puncture Site ABG pH ABG pCO2 at Pt Temp ABG pO2 at Pt Temp ABG HCO3 ABG O2 Sat (Measured) ABG O2 Content ABG Base Excess George Test VBG pH POC VBG pCO2 POC VBG pO2 VBG HCO3 VBG O2 Sat (Wilda) VBG Base Excess Oxygen Flow Rate Vent Mode Vent Rate PEEP Pressure Support Vent Sodium Potassium Chloride Carbon Dioxide Anion Gap BUN Creatinine Est GFR (CKD-EPI)AfAm Est GFR (CKD-EPI)NonAf POC Glucometer 209 Random Glucose Lactic Acid Calcium Total Bilirubin AST ALT Alkaline Phosphatase Troponin I 0.02 Total Protein Albumin Urine Color Urine Appearance Urine pH Ur Specific Mico Urine Protein Urine Glucose (UA) Urine Ketones Urine Blood Urine Nitrite Urine Bilirubin Urine Urobilinogen Ur Leukocyte Esterase Urine WBC (Auto) Urine RBC (Auto) Urine Casts (Auto) U Pathogenic Cast Auto U Epithel Cells (Auto) Urine Bacteria (Auto) Urine Yeast (Auto) Blood Type Antibody Screen 01/23/19 01/23/19 01/23/19 07:20 07:20 07:20 WBC 20.2 H RBC 3.47 L Hgb 11.3 L Hct 34.2 L MCV 98.4 H MCH 32.7 MCHC 33.2 RDW 13.5 Plt Count 366 MPV 7.9 Absolute Neuts (auto) 16.0 H Neutrophils % 79.2 Neutrophils % (Manual) 72.5 Band Neutrophils % 1.0 Lymphocytes % 14.3 Lymphocytes % (Manual) 17.4 Monocytes % 5.4 Monocytes % (Manual) 6 Eosinophils % 0.4 Eosinophils % (Manual) 0.0 Basophils % 0.7 Basophils % (Manual) 0.0 Myelocytes % (Man) 1 Promyelocytes % (Man) 0 Blast Cells % (Manual) 0 Nucleated RBC % 0 Metamyelocytes 2 Hypochromia 0 Platelet Estimate Normal Polychromasia 0 Poikilocytosis 0 Anisocytosis 0 Microcytosis 0 Macrocytosis 1+ PT with INR INR PTT (Actin FS) Puncture Site ABG pH ABG pCO2 at Pt Temp ABG pO2 at Pt Temp ABG HCO3 ABG O2 Sat (Measured) ABG O2 Content ABG Base Excess George Test VBG pH POC VBG pCO2 POC VBG pO2 VBG HCO3 VBG O2 Sat (Wilda) VBG Base Excess Oxygen Flow Rate Vent Mode Vent Rate PEEP Pressure Support Vent Sodium 128 L Potassium 4.7 Chloride 94 L Carbon Dioxide 13 L Anion Gap 21 H BUN 27.0 H Creatinine 1.7 H Est GFR (CKD-EPI)AfAm 46.65 Est GFR (CKD-EPI)NonAf 40.25 POC Glucometer Random Glucose 219 H Lactic Acid 12.9 H* Calcium 8.0 L Total Bilirubin 1.6 H AST 164 H ALT 117 H Alkaline Phosphatase 131 H Troponin I Total Protein 5.2 L Albumin 1.8 L Urine Color Urine Appearance Urine pH Ur Specific Mico Urine Protein Urine Glucose (UA) Urine Ketones Urine Blood Urine Nitrite Urine Bilirubin Urine Urobilinogen Ur Leukocyte Esterase Urine WBC (Auto) Urine RBC (Auto) Urine Casts (Auto) U Pathogenic Cast Auto U Epithel Cells (Auto) Urine Bacteria (Auto) Urine Yeast (Auto) Blood Type Antibody Screen 01/23/19 01/23/19 01/23/19 07:20 07:50 07:56 WBC RBC Hgb Hct MCV MCH MCHC RDW Plt Count MPV Absolute Neuts (auto) Neutrophils % Neutrophils % (Manual) Band Neutrophils % Lymphocytes % Lymphocytes % (Manual) Monocytes % Monocytes % (Manual) Eosinophils % Eosinophils % (Manual) Basophils % Basophils % (Manual) Myelocytes % (Man) Promyelocytes % (Man) Blast Cells % (Manual) Nucleated RBC % Metamyelocytes Hypochromia Platelet Estimate Polychromasia Poikilocytosis Anisocytosis Microcytosis Macrocytosis PT with INR INR PTT (Actin FS) Puncture Site ABG pH ABG pCO2 at Pt Temp ABG pO2 at Pt Temp ABG HCO3 ABG O2 Sat (Measured) ABG O2 Content ABG Base Excess George Test VBG pH 6.93 L* POC VBG pCO2 63.1 H POC VBG pO2 < 49 H VBG HCO3 12.6 L VBG O2 Sat (Wilda) 25.9 L VBG Base Excess -20.3 L Oxygen Flow Rate Vent Mode Vent Rate PEEP Pressure Support Vent Sodium Potassium Chloride Carbon Dioxide Anion Gap BUN Creatinine Est GFR (CKD-EPI)AfAm Est GFR (CKD-EPI)NonAf POC Glucometer Random Glucose Lactic Acid Calcium Total Bilirubin AST ALT Alkaline Phosphatase Troponin I Total Protein Albumin Urine Color Yellow Urine Appearance Cloudy Urine pH 6.0 Ur Specific Mico 1.022 Urine Protein 2+ H Urine Glucose (UA) Negative Urine Ketones Negative Urine Blood 3+ H Urine Nitrite Negative Urine Bilirubin Negative Urine Urobilinogen 1.0 Ur Leukocyte Esterase Negative Urine WBC (Auto) 100.4 Urine RBC (Auto) 23.3 Urine Casts (Auto) 278.9 U Pathogenic Cast Auto None seen U Epithel Cells (Auto) 3.2 Urine Bacteria (Auto) 52.8 Urine Yeast (Auto) Many Blood Type O POSITIVE Antibody Screen Negative 01/23/19 12:00 WBC RBC Hgb Hct MCV MCH MCHC RDW Plt Count MPV Absolute Neuts (auto) Neutrophils % Neutrophils % (Manual) Band Neutrophils % Lymphocytes % Lymphocytes % (Manual) Monocytes % Monocytes % (Manual) Eosinophils % Eosinophils % (Manual) Basophils % Basophils % (Manual) Myelocytes % (Man) Promyelocytes % (Man) Blast Cells % (Manual) Nucleated RBC % Metamyelocytes Hypochromia Platelet Estimate Polychromasia Poikilocytosis Anisocytosis Microcytosis Macrocytosis PT with INR INR PTT (Actin FS) Puncture Site Right radial ABG pH 7.04 L* ABG pCO2 at Pt Temp 88.9 H* ABG pO2 at Pt Temp < 49 L* ABG HCO3 22.6 ABG O2 Sat (Measured) 63.6 L ABG O2 Content No Result Required. ABG Base Excess -11.6 L George Test Positive VBG pH POC VBG pCO2 POC VBG pO2 VBG HCO3 VBG O2 Sat (Wilda) VBG Base Excess Oxygen Flow Rate 100 Vent Mode Prvc Vent Rate 20 PEEP 12.0 Pressure Support Vent 300 Sodium Potassium Chloride Carbon Dioxide Anion Gap BUN Creatinine Est GFR (CKD-EPI)AfAm Est GFR (CKD-EPI)NonAf POC Glucometer Random Glucose Lactic Acid Calcium Total Bilirubin AST ALT Alkaline Phosphatase Troponin I Total Protein Albumin Urine Color Urine Appearance Urine pH Ur Specific Mico Urine Protein Urine Glucose (UA) Urine Ketones Urine Blood Urine Nitrite Urine Bilirubin Urine Urobilinogen Ur Leukocyte Esterase Urine WBC (Auto) Urine RBC (Auto) Urine Casts (Auto) U Pathogenic Cast Auto U Epithel Cells (Auto) Urine Bacteria (Auto) Urine Yeast (Auto) Blood Type Antibody Screen Active Medications Generic Name Dose Route Start Last Admin Trade Name Freq PRN Reason Stop Dose Admin Chlorhexidine Gluconate 1 applic 01/23/19 22:00 Hibiclens For Decolonization - TP HS RAHEEL Norepinephrine Bitartrate 8, 500 mls @ 18.75 mls/hr 01/23/19 09:15 01/23/19 10:59 000 mcg/ Dextrose IV 4 mcg/min TITR RAHEEL 15 mls/hr Titration Protocol 5 MCG/MIN Sodium Chloride 4,000 mls @ 1,000 mls/hr 01/23/19 09:13 01/23/19 07:15 Normal Saline - IV 01/23/19 13:12 1,000 mls/hr ASDIR STA Administration Propofol 1,000,000 mcg in 100 mls @ 1.905 mls/hr 01/23/19 09:45 01/23/19 10: 55 Diprivan - IVPB 30 mcg/kg/min TITR RAHEEL 11.431 mls/hr Titration Protocol 5 MCG/KG/MIN Piperacillin Sod/Tazobactam 50 mls @ 100 mls/hr 01/23/19 11:15 Sod 3.375 gm/ Dextrose IVPB Q8H-IV RAHEEL Protocol Lactated Ringer's 1,000 ml in 1,000 mls @ 150 mls/hr 01/23/19 11:30 01/23/19 12:14 Lactated Ringers Solution IV 150 mls/hr ASDIR RAHEEL Administration Mupirocin 1 applic 01/23/19 12:00 Bactroban Ointment (For Decolonization) - NS 01/28/19 11:59 BID RAHEEL Vancomycin HCl 1,000 mg 01/23/19 11:15 Vancomycin (Pre-Docked) IVPB DAILY RAHEEL Protocol ASSESSMENT/PLAN: S/P CP arrest ARDS with severe hypoxemia Suspected massive aspiration Recently diagnosed stage 4 lung cancer R/O tamponade (low clinical suspicion) ARDS vent management strategy Paralysis to decrease O2 consumption and for vent synchrony Conservative fluid management ECHO Strict I & O Costello-culture Empiric ABX coverage Pressors to maintain MAP > 65 Will need family meetings to discuss GOC Overall prognosis for meaningful survival appears grave Dr Meyer Critical care time spent in reviewing chart, evaluating patient and formulating plan - 36 minutes.
[2019-01-23 14:18] LABS: ANISOCYTOSIS 0; MACROCYTOSIS 1+; OVALOCYTE 1+; PLATELET ESTIMATE NORMAL
--- NOTE | 2019-01-23 14:18 | EKG ---
Test Reason : Blood Pressure : / mmHG Vent. Rate : 114 BPM Atrial Rate : 114 BPM P-R Int : 138 ms QRS Dur : 138 ms QT Int : 356 ms P-R-T Axes : 056 084 027 degrees QTc Int : 490 ms SINUS TACHYCARDIA RIGHT BUNDLE BRANCH BLOCK CANNOT RULE OUT INFERIOR INFARCT , AGE UNDETERMINED ABNORMAL ECG NO PREVIOUS ECGS AVAILABLE Confirmed by YAN TUBBS MD ([id number] on 01/23/2019 2:18:19 PM Referred By: Confirmed By:YAN TUBBS MD
--- NOTE | 2019-01-23 16:01 | PN ---
Teaching Attending Note Name of Resident: Narcisa Betancourt ATTENDING PHYSICIAN STATEMENT I saw and evaluated the patient. I reviewed the resident's note and discussed the case with the resident. I agree with the resident's findings and plan as documented. HPI per chart SUBJECTIVE:68 y/o M with PMHx of newly diagnosed stage 4 adenocarcinoma Lung Ca (Diagnosed a few weeks ago at [facility]) presents after Cardiac Arrest. Family heard a thump next door. EMS was called and ACLS initiated in the field. pt was approx down for 10mins. Initial rhythm PEA and 2 rounds of CPR prior to ROSC achieved. On arrival to the ER pt was hypotensive and tachycardic not responding to IVF and IO was placed for pressors. appears pt was started on treatment for recently diagnosed malignancy with plan to do cardiac window on Saturday due to stable pericardial effusion. OBJECTIVE: Last Vital Signs Temp Pulse Resp BP Pulse Ox 98.6 F 118 H 23 H 62/45 L 77 L 01/23/19 10:55 01/23/19 14:05 01/23/19 12:01 01/23/19 14:13 01/23/19 12:51 Intake & Output 01/20/19 01/21/19 01/22/19 01/23/19 23:59 23:59 23:59 23:59 Output Total 300 Balance -300 Weight 140 lb General intubated CV S1 s2 tachy Lungs coarse breath sounds. mechanical sounds Abdomen soft NT/ND Extremities +IO LLE. no pedal edema ASSESSMENT AND PLAN: 68 y/o M with PMHx of newly diagnosed stage 4 adenocarcinoma Lung Ca (Diagnosed a few weeks ago at [facility]) presents after Cardiac Arrest with ROSC achieved after 10mins found to be in early ARDS with aspiration PNA currently intubated in the MICU 1. s/p cardiac arrest- likely from hypoxia due to progression of disease. PEA on monitor. ROSC achieved. hypothermia protocol not initiated due to family deciding on comfort care going forward. CTA not showing PE. will get echo to evaluate pericardial effusion for signs of tamponade. cardio consult 2. Acute hypoxic respiratory failure- s/p intubated in the field. on imaging appears likely ARDS. having difficulty achieving spO2 >90% on the vent. further vent management per ICU team. 3. severe Sepsis due to suspected aspiration PNA-currently on levo via IO. will need to d/w family about obtaining central like access. Start IVF, vanco and zosyn. ID consult. f/u cx 4. AGMA- due to LA. liekly from compressions vs sepsis. sp bicarb x2 given. may need ggt. repeat ABG. repeat lactate 5. MINDY- due to sepsis vs hypoperfusion. hydrate. avoid nephrotoxic agents. 6. transaminitis- due to hypoperfusion. hydrate. keep MAP >60. trend 7. DVT ppx- hep sq 8. MICU monitoring. poor overall prognosis. palliative care consult. Family decided DNR and discussing possible comfort care. awaiting family decision The care of this patient involved high complexity decision making to prevent further life threatening deterioration of the patient's condition and/or to evaluate & treat vital organ system(s) failure or risk of failure. 55 mins
[2019-01-23 16:25] VITALS: BP 61/27; PULSE 101
--- NOTE | 2019-01-23 17:22 | CONS ---
DATE OF CONSULTATION: DATE OF DICTATION: 01/23/2019 INFECTIOUS DISEASE CONSULTATION HISTORY OF PRESENT ILLNESS: The patient is a 64-year-old male who is evaluated for possible septic shock. History was obtained from the chart, as he cannot give a history. The patient had apparently been recently discharged from [facility] after being diagnosed with adenocarcinoma of the lung. He was on home oxygen. According to the notes he had increasing shortness of breath shortly before his present hospital admission. On January 23, 2019 he was found on the floor at home in cardiopulmonary arrest. EMS responded. He was found to be in PEA. CPR was initiated and he was intubated. He was brought to the emergency room where a CAT scan of the head was negative for acute pathology. His course was complicated by hypotension, tachycardia. He required pressors. In addition it was difficult oxygenating him. CAT scan shows extensive consolidations involving all lobes of the lung. He was empirically treated with vancomycin and Zosyn. At the present time he is intubated. He is unresponsive on the ventilator. Hypotensive on pressors. No documented history of resistant pulmonary pathogen. PAST MEDICAL HISTORY: Positive for recently diagnosed adenocarcinoma of the lung. ALLERGIES: No known allergies. MEDICATION: Include norepinephrine, Zosyn, propofol, vancomycin. SOCIAL HISTORY: He lives at home with family members. 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 Positive history of tobacco use. SYSTEMS REVIEW: Neurologic: Positive for loss of consciousness. No seizure activity, focal weakness. Cardiac: As per HPI. Respiratory: As per HPI. Gastrointestinal: Negative vomiting or diarrhea. Genitourinary: Negative for urinary tract infection. LABORATORY DATA: White count 20.2, 79 neutrophils, 1 band, 14 lymphocytes, 5 monocytes, hematocrit 34.2, platelets 366, BUN 27, creatinine 1.7, total bilirubin 1.6, alkaline phosphatase 131, AST 164. Urinalysis 100 white cells. CAT scan as described. PHYSICAL EXAMINATION: General: On exam, he is unresponsive, on the ventilator. Vital signs: Temperature 98.6, blood pressure 92/67, pulse 138 regular, respirations 23 per minute. HEENT: Sclerae anicteric. Patient is orally intubated. Cardiovascular: Heart sounds tachycardic. S1, S2. Lungs: Air entry bilaterally. Abdomen: Distended. Soft, nontender. Extremities: Negative for edema. There is swelling present over the left forehead with contusion. IMPRESSION: 1. Status post cardiopulmonary arrest. 2. Respiratory failure, rule out acute respiratory distress syndrome. 3. Recently diagnosed adenocarcinoma of the lung. 4. Leukocytosis. 5. Lactic acidosis. 6. Acute kidney injury. 7. Elevated liver enzymes, rule out shock liver. 8. Urinary tract infection. 9. Hyponatremia. Await sepsis workup. Continue hemodynamic and ventilatory support. Empiric antibiotic coverage with vancomycin and Zosyn. Prognosis is poor. Critical care time spent is 40 minutes. YAN ERICKSON M.D. [id number]
--- NOTE | 2019-01-23 19:21 | PN ---
Progress Note (short form) - Note Progress Note: Called to patient bedside due to stoppage of electrical activity on monitor. Patient had been placed on comfort measures per family request, DNR/DNI. On exam the patient did not respond to verbal or physical stimuli. Absent heart sounds, no spontaneous respirations on vent. Absent peripheral pulses. Pupils are fixed and dilated. Patient pronounced at 19:14. Dr. Meyer notified. Family notified at bedside. Autopsy declined. [place] notified, d/w Kirsten, case declined #[id number].
[2019-01-23] MEDS ORDERED: CHLORHEXIDINE GLUCONATE 4% CLEANSER FOR DECOLONIZATION TP SCH (22:00)
[2019-01-24] MEDS ORDERED: VANCOMYCIN 1 GRAM (PRE-DOCKED) 1,000 MG/250 ML BAG IVPB SCH (12:00)
== END 2019-01-23 23:22 | disposition expired | DRG 871 ==
LOC: JER 07:10 → JERBED 08:42 → JICU 11:16
PROVIDERS: ADMIT Internal Medicine; ATTEND Internal Medicine
PROC: 0CHY7BZ Insertion of Airway into Mouth and Throat, Via Natural or Artificial Opening (ICD-10-PCS; principal; 2019-01-23)
PROC: 5A1935Z Respiratory Ventilation, Less than 24 Consecutive Hours (ICD-10-PCS; 2019-01-23)
DX: A41.89 Other specified sepsis (principal); J96.01 Acute respiratory failure with hypoxia; K72.00 Acute and subacute hepatic failure without coma; J69.0 Pneumonitis due to inhalation of food and vomit; N17.9 Acute kidney failure, unspecified; C34.90 Malignant neoplasm of unspecified part of unspecified bronchus or lung; I31.3 Pericardial effusion (noninflammatory); E87.2 Acidosis; N39.0 Urinary tract infection, site not specified; E87.1 Hypo-osmolality and hyponatremia; I46.9 Cardiac arrest, cause unspecified; R65.20 Severe sepsis without septic shock; R68.0 Hypothermia, not associated with low environmental temperature; I45.10 Unspecified right bundle-branch block; I45.81 Long QT syndrome; K75.89 Other specified inflammatory liver diseases; Z66 Do not resuscitate; R00.0 Tachycardia, unspecified; D72.829 Elevated white blood cell count, unspecified; R94.5 Abnormal results of liver function studies
CPT/HCPCS: 36415; 36600; 70450-TC; 71045-TC-FY; 71275-TC; 72125-TC; 74174-TC; 80053; 81003; 82803; 82962; 83605; 83735; 84100; 84484; 85025; 85610; 85730; 86850; 86900; 86901; 87040; 87086; 87899; 93005; 93010; 99285-25; J7030